=== PATIENT | female | born 1985 | race African-American/Black ===

== ENCOUNTER 2016-09-05 09:56 | Emergency (ER) | payer OTHER ==
[2016-09-05 10:04] VITALS: BP 137/98; PULSE 101; TEMP 97.6; BMI 30.2
[2016-09-05] MEDS ORDERED: ALBUTEROL SO4 2.5/IPRATROPIUM 0.5 INH SOL 3 ML VIAL.NEB. NEB ONE ×2 (10:49→10:54)
--- NOTE | 2016-09-05 10:50 | PDOC ---
History of Present Illness - General Chief Complaint: Respiratory Stated Complaint: COUGH, BACK PAIN Time Seen by Provider: 09/05/16 10:22 History Source: Patient Exam Limitations: No Limitations - History of Present Illness Initial Comments: 09/05/16 19:46 Chief complaint: Productive cough 5 days, lower back pain and sore throat for 2 days History of present illness: Patient is a 30-year-old female with anemia here today complaining of productive cough 5 days with greenish sputum and lower back pain for 5 days. She also reports having sore throat 2 days. Patient denies any recent travel or any sick contacts. Patient reports having slight shortness of breath with walking. Patient denies having an influenza vaccine. Patient denies any nasal congestion, nausea vomiting or diarrhea. 09/05/16 19:48 Timing/Duration: getting worse Severity: moderate Associated Symptoms: reports: cough, shortness of breath (with exertion ), other (sore throat ) Past History - Past Medical History Allergies/Adverse Reactions: Allergies Allergy/AdvReac Type Severity Reaction Status Date / Time No Known Allergies Allergy Verified 09/05/16 09:59 Home Medications: Ambulatory Orders Azithromycin [Zithromax 250mg Tablets -] 250 mg PO UTDICT #6 tab 09/05/16 Guaifenesin Dm [Mucinex Dm -] 1 each PO Q12H PRN #10 tab.er.12h 09/05/16 Anemia: Yes - Reproductive History Cervical CA: No Dysfunctional Uterine Bleeding: No Ectopic : No Endometrial CA: No Polycystic Ovaries: No Tubal Ligation: No - Immunization History Immunization Up to Date: Yes - Psycho/Social/Smoking Cessation Hx Anxiety: No Suicidal Ideation: No Smoking Status: Yes Smoking History: Never smoked Have you smoked in the past 12 months: No Number of Cigarettes Smoked Daily: 8 Cigars Per Day: 0 Hx Alcohol Use: No Drug/Substance Use Hx: No Substance Use Type: None Review of Systems - Review of Systems Able to Perform ROS?: Yes Constitutional: No: Symptoms Reported HEENTM: Yes: Throat Pain Respiratory: Yes: SOB with Exertion, Productive cough (greenish for 5 days ). No: Shortness of Breath, SOB at Rest, Stridor, Wheezing Cardiac (ROS): No: Symptoms Reported ABD/GI: No: Symptoms Reported : No: Symptoms Reported Musculoskeletal: No: Symptoms Reported Integumentary: No: Symptoms Reported Neurological: No: Symptoms reported *Physical Exam - Vital Signs Last Vital Signs Temp Pulse Resp BP Pulse Ox 97.6 F 101 H 21 137/98 98 09/05/16 10:00 09/05/16 10:00 09/05/16 10:00 09/05/16 10:00 09/05/16 10:00 - Physical Exam General Appearance: Yes: Appropriately Dressed HEENT: positive: TMs Normal, Pharyngeal Erythema, Tonsillar Erythema (with no uvular deviation ). negative: Tonsillar Exudate Neck: positive: Lymphadenopathy (R), Lymphadenopathy (L) Respiratory/Chest: positive: Lungs Clear, Normal Breath Sounds. negative: Chest Tender, Respiratory Distress Cardiovascular: positive: Regular Rhythm, Regular Rate, S1, S2 Integumentary: positive: Normal Color Neurologic: positive: Alert, Normal Response, Responsive Medical Decision Making - Medical Decision Making 09/05/16 19:49 Patient is a 30-year-old female with no significant medical history here today complaining of productive cough 5 days with greenish sputum and lower back pain for 5 days. She also reports having sore throat 2 days. Patient denies any recent travel or any sick contacts. Patient reports having slight shortness of breath with walking. Patient denies having an influenza vaccine. Patient denies any nasal congestion, nausea vomiting or diarrhea. Bronchitis tonsillitis r/o strep PLAN: duoneb now throat C & S + for beta hemolytic strep group A azithromycin 250 gm 2 tabs today than one tab daily for following 4 days Mucinex DM 1 tab q 12 hr prn cough for 5 days 09/05/16 19:51 *DC/Admit/Observation/Transfer Diagnosis at time of Disposition: Bronchitis Acute tonsillitis Qualifiers: Pharyngitis/tonsillitis etiology: streptococcus Streptococcal tonsillitis recurrence: non-recurrent Qualified Code(s): J03.00 - Acute streptococcal tonsillitis, unspecified - Discharge Dispostion Disposition: HOME Condition at time of disposition: Stable - Prescriptions Prescriptions: Guaifenesin Dm [Mucinex Dm -] 1 each PO Q12H PRN #10 tab.er.12h PRN Reason: Cough Azithromycin [Zithromax 250mg Tablets -] 250 mg PO UTDICT #6 tab - Referrals Referrals: Aramis Funes [Primary Care Provider] - - Patient Instructions Additional Instructions: Up with your primary care provider within the next few days Return to emergency room if any difficulty breathing Drink a lot a fluids and rest Take ibuprofen as needed as directed by civil rights investigator for fever or pain throw Out sure toothbrush and of treatment Patient voiced understanding of discharge instructions and all questions were answered
== END 2016-09-05 11:51 | disposition home or self-care (01) ==
LOC: JERFT 09:56
PROC: 3E0F7GC Introduction of Other Therapeutic Substance into Respiratory Tract, Via Natural or Artificial Opening (ICD-10-PCS; principal; 2016-09-05)
DX: J40 Bronchitis, not specified as acute or chronic (principal); J03.00 Acute streptococcal tonsillitis, unspecified; B95.4 Other streptococcus as the cause of diseases classified elsewhere
CPT/HCPCS: 87070; 87430; 94640; 99281-25

== ENCOUNTER 2017-06-01 13:15 | Emergency (ER) | payer OTHER ==
[2017-06-01 13:27] VITALS: BP 127/78; PULSE 93; TEMP 97.1; BMI 30.4
[2017-06-01] MEDS ORDERED: ALBUTEROL SO4 2.5/IPRATROPIUM 0.5 INH SOL 3 ML VIAL.NEB. NEB ONE ×4 (14:44→16:31)
--- NOTE | 2017-06-01 14:57 | PDOC ---
History of Present Illness - General Chief Complaint: Chest Pain Stated Complaint: CHEST PAIN Time Seen by Provider: 06/01/17 14:33 History Source: Patient Exam Limitations: No Limitations - History of Present Illness Initial Comments: 06/01/17 15:15 My chief complaint: Dry cough since yesterday with shortness of breath with sitting up and walking, chest discomfort with breathing inward History of present illness: Patient is a 31-year-old female with h/o anemia here today complaining of sudden onset of a dry cough yesterday with shortness of breath with sitting up and when walking and chest discomfort with inspiration. Patient denies any sore throat, nasal congestion, fever, nausea, vomiting, or diarrhea. Patient reports that someone at her job had pneumonia recently. 06/01/17 16:33 Timing/Duration: getting worse Severity: moderate Associated Symptoms: reports: chest pain (with inspiration ), cough (dry ), shortness of breath (rest and walking ) Past History - Past Medical History Allergies/Adverse Reactions: Allergies Allergy/AdvReac Type Severity Reaction Status Date / Time No Known Allergies Allergy Verified 06/01/17 13:22 Home Medications: Ambulatory Orders Albuterol Sulfate Inhaler - [Ventolin HFA Inhaler -] 2 inh PO Q4H PRN #1 inh Azithromycin [Zithromax 250mg Tablets -] 250 mg PO UTDICT #6 tab 06/01/17 Prednisone [Deltasone] 20 mg PO BID #8 tablet 06/01/17 Anemia: Yes COPD: No - Reproductive History Cervical CA: No Dysfunctional Uterine Bleeding: No Ectopic : No Endometrial CA: No Polycystic Ovaries: No Tubal Ligation: No - Immunization History Immunization Up to Date: Yes - Suicide/Smoking/Psychosocial Hx Smoking Status: Yes Smoking History: Never smoked Have you smoked in the past 12 months: No Number of Cigarettes Smoked Daily: 8 Cigars Per Day: 0 Information on smoking cessation initiated: No Hx Alcohol Use: No Drug/Substance Use Hx: No Substance Use Type: None Review of Systems - Review of Systems Able to Perform ROS?: Yes Constitutional: No: Symptoms Reported HEENTM: No: Symptoms Reported Respiratory: Yes: Cough, Shortness of Breath (when sitting ), SOB with Exertion Cardiac (ROS): Yes: Chest Pain (with deep inspiration radiates towards her back ) ABD/GI: No: Symptoms Reported : No: Symptoms Reported Musculoskeletal: No: Symptoms Reported Integumentary: No: Symptoms Reported Neurological: No: Symptoms reported *Physical Exam - Vital Signs Last Vital Signs Temp Pulse Resp BP Pulse Ox 97.1 F L 93 H 18 127/78 100 06/01/17 13:24 06/01/17 13:24 06/01/17 13:24 06/01/17 13:24 06/01/17 13:24 - Physical Exam General Appearance: Yes: Appropriately Dressed HEENT: positive: Normal ENT Inspection Neck: negative: Lymphadenopathy (R), Lymphadenopathy (L) Respiratory/Chest: positive: Rhonchi (clears with cough left ), Wheezing ( diffuse b/l expiratory ), Other (reassessment after 2nd neb minimal wheezing expiratory diffuce b/l ). negative: Chest Tender, Respiratory Distress, Accessory Muscle Use, Decreased Breath Sounds, Paradoxal Breathing, Crackles, Rales, Stridor Cardiovascular: positive: Regular Rhythm, Regular Rate, S1, S2 Integumentary: positive: Normal Color Neurologic: positive: Alert, Normal Response Heart Score/ECG Review - ECG Impressions Comment:: 06/01/17 16:35 reviewed by MD ED Treatment Course - Medications Given in the ED: ED Medications Discontinued Medications Generic Name Dose Route Start Last Admin Trade Name Freq PRN Reason Stop Dose Admin Albuterol/Ipratropium 1 amp 06/01/17 14:44 06/01/17 14:48 Duoneb - NEB 06/01/17 14:45 1 amp ONCE ONE Administration Medical Decision Making - Medical Decision Making 06/01/17 15:17 Patient is a 31-year-old female with h/o anemia here today complaining of sudden onset of a dry cough yesterday with shortness of breath with sitting up and when walking and chest discomfort radiating towards her back with inspiration. Patient denies any sore throat, nasal congestion, fever, nausea, vomiting, or diarrhea. Patient reports that someone at her job had pneumonia recently. Patient denies any chance of as mentioned waiting presently. Chest Discomfort r/o infiltrate wheezing diffuse b/l PLAN: duoneb now EKG NSR reviewed by md mccartney chest PA/lateral negative per Dr. Montanez no infiltrate 06/01/17 15:51 06/01/17 16:33 duoneb now prednisone 40 mg po now than 20 mg bid for following 4 days albuterol HFA 2 puffs every 4 hr prn wheezing, sob azithromycin 250 mg 2 tabs now than one daily for following 4 days *DC/Admit/Observation/Transfer Diagnosis at time of Disposition: Asthmatic bronchitis Qualifiers: Asthma severity: unspecified severity Asthma persistence: unspecified Asthma complication type: uncomplicated Qualified Code(s): J45.909 - Unspecified asthma , uncomplicated - Discharge Dispostion Disposition: HOME Condition at time of disposition: Stable - Prescriptions Prescriptions: Albuterol Sulfate Inhaler - [Ventolin HFA Inhaler -] 2 inh PO Q4H PRN #1 inh PRN Reason: Short Of Breath/Wheezing Azithromycin [Zithromax 250mg Tablets -] 250 mg PO UTDICT #6 tab Prednisone [Deltasone] 20 mg PO BID #8 tablet - Referrals Referrals: Rock Funes MD [Primary Care Provider] - - Patient Instructions Additional Instructions: Follow-up with your primary care provider within the next few days Return to emergency room if symptoms worsen or new symptoms develop any difficulty breathing Drink a lot a fluids and rest Patient voiced understanding of discharge instructions and all questions were answered - Post Discharge Activity Forms/Work/School Notes: Back to Work
[2017-06-01] MEDS ORDERED: predniSONE 20 MG TABLET (UD) PO ONE (16:32)
[2017-06-01] MEDS ORDERED: predniSONE 20 MG TABLET (UD) ONE (16:38)
--- NOTE | 2017-06-02 13:00 | EKG ---
Test Reason : Blood Pressure : / mmHG Vent. Rate : 084 BPM Atrial Rate : 084 BPM P-R Int : 154 ms QRS Dur : 082 ms QT Int : 346 ms P-R-T Axes : 023 067 035 degrees QTc Int : 408 ms NORMAL SINUS RHYTHM NORMAL ECG NO PREVIOUS ECGS AVAILABLE Confirmed by KELLY BAZAN, BRENNEN ([id number]) on 06/02/2017 12:59:58 PM Referred By: Confirmed By:BRENNEN MENDOZA MD
== END 2017-06-01 16:56 | disposition home or self-care (01) ==
LOC: JER 13:15 → JERFT 13:15
PROC: 3E0F7GC Introduction of Other Therapeutic Substance into Respiratory Tract, Via Natural or Artificial Opening (ICD-10-PCS; principal; 2017-06-01)
PROC: 3E0F7GC Introduction of Other Therapeutic Substance into Respiratory Tract, Via Natural or Artificial Opening (ICD-10-PCS; 2017-06-01)
PROC: 3E0F7GC Introduction of Other Therapeutic Substance into Respiratory Tract, Via Natural or Artificial Opening (ICD-10-PCS; 2017-06-01)
DX: J45.909 Unspecified asthma, uncomplicated (principal)
CPT/HCPCS: 71020-TC; 93005; 93010; 94640; 99281-25

== ENCOUNTER 2017-12-25 07:26 | Emergency (ER) | payer OTHER ==
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
[2017-12-25] MEDS ORDERED: FLUORESCEIN NA 1 EA STRIP OD ONE (07:34)
[2017-12-25] MEDS ORDERED: TETRACAINE 0.5% HCL 0.6ML DROPPER.BOTTLE OD ONE (07:34)
[2017-12-25 07:38] VITALS: BP 125/94; PULSE 71; TEMP 97.7; BMI 27.6
[2017-12-25] MEDS ORDERED: FLUORESCEIN NA 1 EA STRIP ONE (07:43)
[2017-12-25] MEDS ORDERED: TETRACAINE 0.5% OPHTH SOLN 2 ML BOTTLE ONE (07:43)
== END 2017-12-25 08:10 | disposition home or self-care (01) ==
LOC: FER 07:26
DX: R05 Cough (principal); H11.31 Conjunctival hemorrhage, right eye; R73.03 Prediabetes; Z72.0 Tobacco use; Z79.84 Long term (current) use of oral hypoglycemic drugs
CPT/HCPCS: 99282-25

== ENCOUNTER 2018-09-25 11:54 | Emergency (ER) | payer OTHER ==
--- NOTE | 2018-09-25 12:02 | PDOC ---
History of Present Illness - General Chief Complaint: Sore Throat Stated Complaint: REQUESTING STREP TEST TINGLING TO THROAT Time Seen by Provider: 09/25/18 11:57 History Source: Patient Exam Limitations: No Limitations - History of Present Illness Initial Comments: 09/25/18 11:57 32 y/o female with mild tickling in back of throat. Daughter recently diagnosed with strep and wants to be checked. No fever or chills. No cough. SOB or chest pain. Feels fine otherwise. Severity: mild Associated Symptoms: denies: chest pain, cough, fever/chills, headaches, rash Past History - Past Medical History Allergies/Adverse Reactions: Allergies Allergy/AdvReac Type Severity Reaction Status Date / Time No Known Allergies Allergy Verified 09/25/18 11:56 Home Medications: Ambulatory Orders NK [No Known Home Medication] 09/25/18 Anemia: Yes COPD: No Diabetes: Yes (PRE) - Reproductive History Cervical CA: No Dysfunctional Uterine Bleeding: No Ectopic : No Endometrial CA: No Polycystic Ovaries: No Tubal Ligation: No - Immunization History Immunization Up to Date: Yes - Suicide/Smoking/Psychosocial Hx Smoking Status: Yes Smoking History: Never smoked Have you smoked in the past 12 months: No Number of Cigarettes Smoked Daily: 8 Cigars Per Day: 0 'Breaking Loose' booklet given: 12/25/17 Hx Alcohol Use: No Drug/Substance Use Hx: No Substance Use Type: None Review of Systems - Review of Systems Able to Perform ROS?: Yes Is the patient limited [place] Citizen proficient: No Constitutional: No: Chills, Fever HEENTM: Yes: Throat Pain. No: Nose Congestion, Mouth Pain, Difficulty Swallowing Respiratory: No: Cough, Shortness of Breath Cardiac (ROS): No: Chest Pain ABD/GI: No: Nausea, Vomiting Integumentary: No: Rash Psychiatric: No: Anxiety All Other Systems: Reviewed and Negative *Physical Exam - Physical Exam General Appearance: Yes: Nourished, Appropriately Dressed, Apparent Distress HEENT: positive: EOMI, BARON, Normal ENT Inspection, Normal Voice, Pharynx Normal (no redness, uvula midline, no exudates, no peritonsillar abscess seen) Neck: positive: Trachea midline, Normal Thyroid, Supple. negative: Tender, Rigid Respiratory/Chest: positive: Lungs Clear, Normal Breath Sounds. negative: Chest Tender, Respiratory Distress Cardiovascular: positive: Regular Rhythm, Regular Rate, S1, S2. negative: Edema Vascular Pulses: Femoral (R): 4+, Femoral (L): 4+, Carotid (R): 4+, Carotid (L) : 4+, Dorsalis-Pedis (R): 4+, Doralis-Pedis (L): 4+ Gastrointestinal/Abdominal: positive: Normal Bowel Sounds, Flat, Soft. negative : Tender, Organomegaly Lymphatic: negative: Adenopathy, Tenderness, Other Musculoskeletal: positive: Normal Inspection. negative: CVA Tenderness Extremity: positive: Normal Capillary Refill, Normal Inspection, Normal Range of Motion Integumentary: positive: Normal Color, Dry, Warm Neurologic: positive: provider network analyst II-XII NML intact, Fully Oriented, Alert, Normal Mood/ Affect, Normal Response, Motor Strength 5/5 ED Treatment Course - ADDITIONAL ORDERS Additional order review: 09/25/18 12:01 Pt with mild sore throat, will check for strep. Patient in agreement with plan. 09/25/18 12:53 Dx: viral pharyngitis Fluids, rest, Tylenol If worsen return to ER *DC/Admit/Observation/Transfer Diagnosis at time of Disposition: Pharyngitis Qualifiers: Pharyngitis/tonsillitis etiology: unspecified etiology Qualified Code(s): J02.9 - Acute pharyngitis, unspecified - Discharge Dispostion Disposition: HOME Condition at time of disposition: Good Decision to Admit order: No - Referrals - Patient Instructions Printed Discharge Instructions: DI for Viral Pharyngitis Additional Instructions: Fluids, rest, Motrin If worsen return to ER - Post Discharge Activity
[2018-09-25 12:03] VITALS: BP 138/70; PULSE 96; TEMP 98.7; BMI 31.1
== END 2018-09-25 12:57 | disposition home or self-care (01) ==
LOC: FER 11:54
DX: J02.9 Acute pharyngitis, unspecified (principal); R73.03 Prediabetes
CPT/HCPCS: 87070; 87880; 99281-25

== ENCOUNTER 2020-01-11 21:33 | Emergency (ER) | payer OTHER ==
[2020-01-11 21:52] VITALS: BP 143/79; PULSE 93; TEMP 98.5; BMI 31.1
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
[2020-01-11] MEDS ORDERED: AMOX TR/POT CLAV 875MG/125MG TABLETS (FP) PO ONE (22:45)
[2020-01-11] MEDS ORDERED: AMOX TR/POT CLAV 875MG/125MG TABLETS (FP) ONE (22:49)
== END 2020-01-11 22:54 | disposition home or self-care (01) ==
LOC: FER 21:33
DX: S51.851A Open bite of right forearm, initial encounter (principal); W50.3XXA Accidental bite by another person, initial encounter
CPT/HCPCS: 99283-25

== ENCOUNTER 2020-01-16 08:58 | Emergency (ER) | payer OTHER ==
[2020-01-16 09:08] VITALS: BP 126/87; PULSE 73; TEMP 98.2; BMI 31.9
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
== END 2020-01-16 09:30 | disposition home or self-care (01) ==
LOC: FER 08:58
DX: S51.851A Open bite of right forearm, initial encounter (principal); W50.3XXA Accidental bite by another person, initial encounter; Z48.00 Encounter for change or removal of nonsurgical wound dressing
CPT/HCPCS: 99281-25

== ENCOUNTER 2020-01-26 14:05 | Emergency (ER) | payer OTHER ==
[2020-01-26 14:21] VITALS: BP 130/96; PULSE 99; TEMP 97.8; BMI 31.1
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
== END 2020-01-26 14:45 | disposition home or self-care (01) ==
LOC: FER 14:05
DX: L27.0 Generalized skin eruption due to drugs and medicaments taken internally (principal)
CPT/HCPCS: 99282-25

== ENCOUNTER 2022-06-09 09:43 | Emergency (ER) | payer OTHER ==
[2022-06-09 10:00] VITALS: BP 126/84; PULSE 106; RESP 18; TEMP 99.2; BMI 33.4
[2022-06-09] MEDS ORDERED: ALBUTEROL SO4 2.5/IPRATROPIUM 0.5 INH SOL 3 ML VIAL.NEB. NEB ONE (10:08)
[2022-06-09] MEDS ORDERED: ACETAMINOPHEN 500 MG TABLET (FP) PO ONE (10:32)
[2022-06-09] MEDS ORDERED: ACETAMINOPHEN 500 MG TABLET (FP) ONE (10:35)
== END 2022-06-09 11:49 | disposition home or self-care (01) ==
LOC: JER 09:43
PROC: 3E0F7GC Introduction of Other Therapeutic Substance into Respiratory Tract, Via Natural or Artificial Opening (ICD-10-PCS; principal; 2022-06-09)
DX: J11.1 Influenza due to unidentified influenza virus with other respiratory manifestations (principal)
CPT/HCPCS: 0241U-QW; 71046-TC-FY; 99284-25

== ENCOUNTER 2024-03-29 19:48 | Emergency (ER) | payer OTHER ==
[2024-03-29 19:53] VITALS: PULSE 91; RESP 18; TEMP 98.4; BMI 36.5
[2024-03-29] MEDS ORDERED: AMOX TR/POT CLAV 875MG/125MG TABLETS (FP) ONE (20:14)
[2024-03-29] MEDS ORDERED: DIPHTH,PERTUSS(ACELL),TET 0.5 ML DISP.SYRIN IM ONE (20:14)
[2024-03-29] MEDS: DIPHTH,PERTUSS(ACELL),TET 0.5 ML DISP.SYRIN IM ONE (20:17)
[2024-03-29] MEDS: AMOX TR/POT CLAV 875MG/125MG TABLETS (FP) PO ONE (20:17)
[2024-03-29 20:34] VITALS: BP 144/108
== END 2024-03-29 20:38 | disposition home or self-care (01) ==
LOC: FER 19:48
PROC: 3E0234Z Introduction of Serum, Toxoid and Vaccine into Muscle, Percutaneous Approach (ICD-10-PCS; principal; 2024-03-29)
DX: S50.811A Abrasion of right forearm, initial encounter (principal); Y04.1XXA Assault by human bite, initial encounter
CPT/HCPCS: 90471; 90715; 99284-25

== ENCOUNTER 2025-01-29 14:18 | Emergency (ER) | payer SELFPAY ==
[2025-01-29 14:23] VITALS: BP 157/95; PULSE 95; RESP 16; TEMP 98.4; BMI 33.0
[2025-01-29] MEDS ORDERED: ALBUTEROL SO4 2.5/IPRATROPIUM 0.5 INH SOL 3 ML VIAL.NEB. NEB ONE ×2 (15:21→16:43)
[2025-01-29] MEDS ORDERED: predniSONE 20 MG TABLET (UD) ONE (15:21)
[2025-01-29] MEDS: predniSONE 20 MG TABLET (UD) PO ONE (15:35)
[2025-01-29] MEDS: ALBUTEROL SO4 2.5/IPRATROPIUM 0.5 INH SOL 3 ML VIAL.NEB. NEB ONE ×2 (15:35→16:43)
== END 2025-01-29 19:10 | disposition home or self-care (01) ==
LOC: JER 14:18
PROC: 3E0F7GC Introduction of Other Therapeutic Substance into Respiratory Tract, Via Natural or Artificial Opening (ICD-10-PCS; principal; 2025-01-29)
PROC: 3E0F7GC Introduction of Other Therapeutic Substance into Respiratory Tract, Via Natural or Artificial Opening (ICD-10-PCS; 2025-01-29)
DX: J45.909 Unspecified asthma, uncomplicated (principal)
CPT/HCPCS: 71046-TC-FY; 87637-QW; 93005; 93010; 99285-25